=== PATIENT | male | born 1965 | race Caucasian/White ===

== ENCOUNTER 2022-10-22 13:47 | Emergency (ER) | payer OTHER ==
[~2022-10-22] VITALS: Ht 170.2 cm; Wt 84.4 kg
[2022-10-22 13:50] VITALS: BP 187/106
--- NOTE | 2022-10-22 13:57 | NUR ---
BUDGET ASSISTANT: RADHA RUBI SISTER: [phone]
--- NOTE | 2022-10-22 14:00 | NUR ---
57YO MALE PT BIBA HOME C/O SEIZURE XTODAY. PER [facility], PT HAD 2MIN SEIZURE WITNESSED AND ASSISTED TO FLOOR BY SISTER . UPON ARRIVAL, PT AAOX4 -INCONTINENCE -ORAL TRAUMA. STATES BEING OUT OF MOST RX AND W/O RX DILANTIN FOR ABOUT 2 WEEKS. C/O FLACO BELOW KNEE PAIN, +2 PITTING AND NON TENDER . 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 BED AT LOWEST POSITION, BED [id number]. SEIZURE PADS IN PLACE. HX: ASTHMA, SEIZURE, HTN, CHF, BLIND ALLERGIES: PENICILLIN , MORPHINE
[2022-10-22] MEDS ORDERED: PREGABALIN 25 MG CAP PO SCH (15:00)
[2022-10-22] MEDS ORDERED: levETIRAcetam 500 MG TAB PO ONE (15:20)
[2022-10-22 15:25] LABS: BASOPHILS # (AUTO) 0.1 K/uL (0.00-0.22); BASOPHILS % (AUTO) 1.9 % (0.0-2.0); EOSINOPHILS # (AUTO) 0.1 K/uL (0-0.4); EOSINOPHILS % (AUTO) 2.9 % (0.0-4.0); HEMATOCRIT 44.7 % (36-52); HEMOGLOBIN 14.9 g/dL (12.0-18.0); LYMPHOCYTES # (AUTO) 1.6 K/uL (2.0-11.5); LYMPHOCYTES % (AUTO) 31.3 % (20.5-51.1); MEAN CORPUSCULAR HEMOGLOBIN 31 pg (27-31); MEAN CORPUSCULAR HGB CONC 33 g/dL (33-37); MEAN CORPUSCULAR VOLUME 91.7 fL (80-94); MONOCYTES # (AUTO) 0.6 K/uL (0.8-1.0); MONOCYTES % (AUTO) 11.5 % (1.7-9.3); NEUTROPHILS # (AUTO) 2.7 K/uL (1.8-7.7); NEUTROPHILS % (AUTO) 52.4 % (42.2-75.2); PLATELET COUNT (AUTO) 202 K/uL (140-450); RED BLOOD CELL COUNT(AUTO) 4.87 MIL/uL (4.20-6.10); WHITE BLOOD COUNT (AUTO) 5.1 K/uL (4.8-10.8)
[2022-10-22] MEDS ORDERED: HYDROcodone/APAP 5/325 MG 1 TAB TAB PO ONE (15:35)
[2022-10-22 15:44] VITALS: BP 182/119
[2022-10-22 15:48] LABS: APPEARANCE,URINE CLEAR (CLEAR); BILIRUBIN,URINE NEGATIVE (NEGATIVE); BLOOD, URINE NEGATIVE (NEGATIVE); COLOR,URINE YELLOW (YELLOW); LEUKOCYTE ESTERASE ,URINE NEGATIVE (NEGATIVE); NITRITE, URINE NEGATIVE (NEGATIVE); UGLUCOSE NEGATIVE (NEGATIVE)
[2022-10-22 16:00] LABS: ALBUMIN 3.2 g/dL (3.4-5.0); ANION GAP 11.6 (8-16); ASPARTATE AMINOTRANSFERASE 44 U/L (15-37); CARBON DIOXIDE 25.5 mmol/L (21-32); CHLORIDE 107 mmol/L (98-107); CREATININE 1.5 mg/dL (0.6-1.3); GFR ARICAN-AMERICAN 62 mL/min (>90); GLUCOSE 94 mg/dL (74-106); POTASSIUM 4.1 mmol/L (3.5-5.1); SODIUM SERUM 140 mmol/L (136-145); TOTAL BILIRUBIN 0.4 mg/dL (0.0-1.0); UREA NITROGEN, BLOOD 31 mg/dL (7-18)
[2022-10-22] MEDS ORDERED: FURO-570 PO (16:41)
[2022-10-22] MEDS ORDERED: PHEN300C5 PO (16:41)
[2022-10-22] MEDS ORDERED: KEP500 PO (16:41)
--- NOTE | 2022-10-22 17:43 | NUR ---
[facility] CALLED FOR ETA UPDATE "2O MIN".
--- NOTE | 2022-10-22 18:02 | NUR ---
Patient discharged with v/s stable. Written and verbal after care instructions FOR SEIZURE given and explained. Patient alert, oriented and verbalized understanding of instructions. Ambulatory with by caregiver. All questions addressed prior to discharge. ID band removed. Patient advised to follow up with PMD. Rx of LASIX, KEPPRA, PHENYTOIN SODIUM EXTENDED given. Opportunity to ask questions provided and answered.
== END 2022-10-22 18:02 | disposition home or self-care (01) ==
LOC: MED 13:47
DX: G40.909 Epilepsy, unspecified, not intractable, without status epilepticus (principal); I11.0 Hypertensive heart disease with heart failure; I50.9 Heart failure, unspecified; F17.200 Nicotine dependence, unspecified, uncomplicated; E11.9 Type 2 diabetes mellitus without complications; Z91.14 Patient's other noncompliance with medication regimen; Z88.0 Allergy status to penicillin; Z88.5 Allergy status to narcotic agent; Z79.899 Other long term (current) drug therapy
CPT/HCPCS: 36415; 71045; 80053; 81003; 84484; 85025; 93005; 99285; Q0092